=== PATIENT | male | born 1965 | race Caucasian/White ===

== ENCOUNTER 2019-07-01 05:24 | Emergency (ER) | payer OTHER ==
[~2019-07-01] VITALS: Ht 185.4 cm; Wt 95.3 kg
[2019-07-01] MEDS ORDERED: BACTRIM DS TAB1 EAC1 PO (05:45)
[2019-07-01] MEDS ORDERED: NORCO 5-325 TA1 EAC1 PO (05:45)
[2019-07-01 06:06] VITALS: BP 128/86
== END 2019-07-01 06:06 ==
LOC: M.ERS 05:24
DX: S91.311A Laceration without foreign body, right foot, initial encounter (principal); L03.115 Cellulitis of right lower limb; Z88.0 Allergy status to penicillin; X58.XXXA Exposure to other specified factors, initial encounter; Y93.89 Activity, other specified; Y92.89 Other specified places as the place of occurrence of the external cause; Y99.8 Other external cause status

== ENCOUNTER 2019-09-13 17:35 | Inpatient (IN) | payer OTHER ==
[~2019-09-13] VITALS: Ht 185.4 cm; Wt 111.0 kg
--- NOTE | ~2019-09-13 | CON ---
[address] [address] CONSULTATION Name: SHANNAN MEEKS Room: [address] IN .R.#: [id number] Admission: 09/13/19 Attend Phys: Khadar Ma MD Discharge: Date of : 67 Report #: [id number] THIS REPORT FOR: //name// CC: Khadar Ma [facility] physician/PCP DICTATED BY: Seema WILSON DATE OF SERVICE: 09/16/2019 PRIMARY CARE PHYSICIAN: The patient does not have a PCP. Please note, at the time of this dictation, the patient was seen and physically examined by myself. REASON FOR CONSULTATION: Abnormal CT pancreatic cysts noted. HISTORY OF PRESENT ILLNESS: This is a 54-year-old male, who presented to the Emergency Room with worsening of his shortness of breath over the past week. He states he was diagnosed with influenza 2 weeks prior and he is still having some flu-like symptoms with fever, in which he was complaining of some body aches and chills and dizzy with some head congestion and he has had a little bit of nausea and vomiting. At the time of this dictation when I saw the patient, symptoms of his upper respiratory tract have completely resolved along with his fever and he is feeling significantly better. In talking with the patient, he has never been informed that he was positive for hepatitis C. We will start a workup. In further talking to the patient, he did have some tattoos that were done by friends and not at a shop. He also admits to IV drug use in his teens. The patient denies any nausea, vomiting, any acid reflux, any abdominal pain or any changes in his bowel habits. He states his bowels move daily soft and formed on a regular basis with no evidence of any bright red blood or black tarry stools. He denies any issues with acid reflux either. ALLERGIES: PENICILLIN. MEDICATIONS FROM HOME: None. PAST MEDICAL HISTORY: Negative. PAST SURGICAL HISTORY: Negative. FAMILY HISTORY: Negative for any GI or female cancers. SOCIAL HISTORY: Past IV drug use. Denies any alcohol or tobacco use at this time along with [place] [address] CONSULTATION Name: SHANNAN MEEKS [place] Room: [address]#: [id number] Admission: 09/13/19 Attend Phys: Khadar Ma MD Discharge: Date of : 67 Report #: [id number] REVIEW OF SYSTEMS: Twelve-point review of systems is essentially negative except what is mentioned in the HPI. PHYSICAL EXAMINATION: VITAL SIGNS: Temperature 37.2, pulse 82, respirations 18, and blood pressure 116/54. HEART: Regular rate and rhythm. LUNGS: Diminished, but clear. ABDOMEN: Soft, positive bowel sounds in all 4 quadrants with no masses or tenderness noted. SKIN: Warm and dry with numerous tattoos on arms, abdomen, neck, and all over his body. LABORATORY DATA: White count on admission was 13.9, it is now normal. His white count yesterday was up to 19.1. Hemoglobin is 13.3, platelets is 185. PT 10.9, INR is 1.1, GFR is 70. LFTs are completely normal. His BNP was a little elevated at 1366. CT of the abdomen and pelvis showed nodular surface of the liver with mild hepatosplenomegaly, may representing cirrhosis with mild portal hypertension. Gallbladder was contracted. Mildly prominent lymph nodes around the head of the pancreas and in the retroperitoneum without any evidence of any pathological adenopathy that was noted. He has a small umbilical fat hernia, otherwise normal. He just returned from an ultrasound that was confirming a slightly nodular surface of his liver and that he was at the upper limits of normal. Gallbladder was completely normal. CPD was normal. Pancreas partially visualized. Portal vein flow was normal in this direction without any evidence of any stenosis and the spleen was not noted on ultrasound. IMPRESSION: 1. Pancreatic lymph nodes, more prominent noted. 2. Positive HCV with a history of IV drug use in his teens and numerous tattoos outside of a parlor. 3. Cirrhosis of the liver, likely related to #2. 4. Leukocytosis. 5. Shortness of air, resolved. 6. History of influenza 2 weeks ago. PLAN: 1. We will obtain an AFP and HCV PCR RNA. 2. Further recommendations to be made as an outpatient regarding treatment and followup regarding his cirrhosis as well as EGD and colon [place] [address] CONSULTATION Name: SHANNAN MEEKS Room: [address] IN [facility]#: [id number] Admission: 09/13/19 Attend Phys: Khadar Ma MD Discharge: Date of : 67 Report #: [id number] Thank you for allowing us to participate in this patient's care. Please do not hesitate to call with any questions in regard to this consult. By: [id number] [id number] Cassidy MD /chris
[~2019-09-13 17:35] MED LIST: BACTRIM DS TAB1 EAC1 PO; NORCO 5-325 TA1 EAC1 PO
[2019-09-13 17:52] VITALS: BP 126/81
[2019-09-13 18:22] LABS: INFLUENZA A ANTIGEN Negative (Negative); INFLUENZA B ANTIGEN Negative (Negative)
[2019-09-13 18:32] LABS: HEMATOCRIT 42.1 % (42.0-52.0); HEMOGLOBIN 14.7 gm/dL (14.0-18.0); MCH 30.3 pg (26.0-34.0); MCV 86.7 fL (80.0-100.0); MPV 8.6 fl. (7.2-11.1); NUCLEATED RBCS 0 /100WBC; PLATELET COUNT* 130 thou/uL (150-400); RBC 4.85 mil/uL (4.50-6.00); RDW-CV 13.8 % (10.5-14.5); WBC 13.9 thou/uL (4.0-11.0)
[2019-09-13 18:46] LABS: CALCIUM 7.9 mg/dL (8.5-10.1); CREATININE 1.9 mg/dL (0.6-1.3)
[2019-09-13 18:51] LABS: ALBUMIN 2.7 g/dL (3.4-5.0); TOTAL BILIRUBIN 1.4 mg/dL (<0.1-1.0); TOTAL PROTEIN 7.5 g/dL (6.4-8.2)
[2019-09-13 19:23] LABS: ABSOLUTE LYMPHOCYTES 1.3 thou/uL (0.8-5.3); ABSOLUTE MONOCYTES 1.1 thou/uL (0.0-1.2); ABSOLUTE NEUTROPHILS 11.5 thou/uL (1.6-8.1)
[2019-09-13 19:24] LABS: LARGE PLATELETS OCCASIONAL; PLATELET ESTIMATE ADEQUATE
[2019-09-13 21:02] VITALS: BP 86/53
[2019-09-13 22:00] VITALS: BP 106/64
[2019-09-14] VITALS (7 sets, daily range): BP systolic 109–140; BP diastolic 52–75
--- NOTE | 2019-09-14 04:44 | NUR ---
PATIENT PROGRESSING TOWARDS GOALS: PATIENT HAS REMAINED AFEBRILE SINCE ADMISSION. STATES HE "FEELS SO MUCH BETTER." IVF INFUSING PER ORDERS. INFORMED PATIENT THAT WE NEED A URINE SAMPLE AND PROVIDED A CLEAN URINAL. CALL LIGHT WITHIN REACH
--- NOTE | 2019-09-14 12:35 | NUR ---
CM COMPLETED INITIAL ASSESSMENT. PT ALERT AND CONVERSATIONAL. WOJCIECH AT BESIDE. PT IS INDEPENDENT AND ACTIVE AND EMPLOYEED. REPORTS HX W/SNF OR HH. NO NEEDS IDENTIFIED AT THIS TIME. CM TO CONT TO FOLLOW.
--- NOTE | 2019-09-14 14:33 | EKG ---
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
[2019-09-14 14:34] LABS: CALCIUM 8.3 mg/dL (8.5-10.1); CREATININE 1.4 mg/dL (0.6-1.3)
[2019-09-14 14:38] LABS: POTASSIUM 2.9 mmol/L (3.5-5.1)
--- NOTE | 2019-09-14 16:00 | 2DMMODE ---
[place] [address] 2 D/M-MODE ECHOCARDIOGRAM Name: SHANNAN MEEKS Room: [address] IN [facility]#: [id number] Admission: 09/13/19 Attend Phys: Khadar Ma, Discharge: Date of : 67 Date of Service: 09/14/19 1559 Report #: [id number] THIS REPORT FOR: //name// APPROVED REPORT Study performed: 09/14/2019 14:54:54 EXAM: Comprehensive 2D, Doppler, and color-flow Echocardiogram Patient Location: In-Patient Room #: 230 Status: routine BSA: 2.26 HR: 97 bpm BP: 124/68 mmHg Rhythm: NSR Other Information Study Quality: Good Indications Dyspnea 2D Dimensions IVSd: 7.74 (7-11mm) LVOT Diam: 23.46 (18-24mm) LVDd: 49.29 mm PWd: 10.12 (7-11mm) Ascending Ao: 33.73 (22-36mm) LVDs: 26.53 (25-40mm) Aortic Root: 33.74 mm Volumes Left Atrial Volume (Systole) LA ESV Index: 27.50 mL/m2 Aortic Valve AoV Peak Caesar.: 1.86 m/s AO Peak Gr.: 13.90 mmHg LVOT Max P.84 mmHg AO Mean Gr.: 8.24 mmHg LVOT Mean P.23 mmHg LVOT Max V: 1.31 m/s AO V2 VTI: 34.44 cm LVOT Mean V: 0.82 m/s KELSEY (VTI): 2.98 cm2 LVOT V1 VTI: 23.72 cm Mitral Valve E/A Ratio: 1.14 MV Decel. Time: 184.40 ms MV E Max Caesar.: 0.93 m/[place] [address] 2 D/M-MODE ECHOCARDIOGRAM Name: SHANNAN MEEKS Room: [address] IN ..#: [id number] Admission: 09/13/19 Attend Phys: Khadar Ma, Discharge: Date of : 67 Date of Service: 09/14/19 1559 Report #: [id number] PHT: 53.48 ms MVA (PHT): 4.11 cm2 TDI E/Lateral E': 6.20 E/Medial E': 5.47 Medial E' Caesar.: 0.17 m/s Lateral E' Caesar.: 0.15 m/s Pulmonary Valve PV Peak Caesar.: 1.37 m/s PV Peak Gr.: 7.50 mmHg Left Ventricle The left ventricle is normal size. There is normal LV segmental wall motion. There is normal left ventricular wall thickness. Left ventricular systolic function is normal. LVEF is 65-70%. The left ventricular diastolic function is normal. Right Ventricle The right ventricle is normal size. The right ventricular systolic function is normal. Atria The left atrium size is normal. The right atrium size is normal. Aortic Valve The aortic valve is normal in structure. No aortic regurgitation is present. There is no aortic valvular stenosis. Mitral Valve The mitral valve is normal in structure. There is no mitral valve regurgitation noted. No evidence of mitral valve stenosis. Tricuspid Valve The tricuspid valve is normal in structure. Trace tricuspid regurgitation. No pulmonary hypertension. Pulmonic Valve The pulmonary valve is normal in structure. There is no pulmonic valvular regurgitation. Great Vessels The aortic root is normal in size. IVC is normal in size and collapses >50% with [place] [address] 2 D/M-MODE ECHOCARDIOGRAM Name: SHANNAN MEEKS Room: [address] IN [facility]#: [id number] Admission: 09/13/19 Attend Phys: Khadar Ma, Discharge: Date of : 67 Date of Service: 09/14/19 1559 Report #: [id number] There is no pericardial effusion. <Conclusion> The left ventricle is normal size. There is normal left ventricular wall thickness. Left ventricular systolic function is normal. LVEF is 65-70%. The left ventricular diastolic function is normal. Trace tricuspid regurgitation. No pulmonary hypertension. IVC is normal in size and collapses >50% with inspiration. <ELECTRONICALLY SIGNED> By: Jono Dimas MD, FACC 09/14/19 1559 1559 1559 Jono Dimas MD, FACC /INF
[2019-09-15 00:33] VITALS: BP 132/70
[2019-09-15 04:00] VITALS: BP 100/55
--- NOTE | 2019-09-15 04:55 | NUR ---
ASSUMED PT CARE AT APPROX 1930. PT IS AWAKE AND ORIENTED X4. AT APPROX 2146 PT HAD AN APPROX 2MIN RUN OF WHAT LOOKED TO BE AN SVT-AT 180's. BP AND OTHER VITALS ARE STABLE OTHERWISE-PLS SEE CHARTING, PT DENIES CHEST PAIN. 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 DR MARTIN MADE AWARE, NO NEW ORDERS RECEIVED. WILL CONTINUE CLOSE MONITORING.
[2019-09-15 05:28] LABS: ABSOLUTE BASOPHILS 0.1 thou/uL (0.0-0.2); ABSOLUTE LYMPHOCYTES 1.4 thou/uL (0.8-5.3); ABSOLUTE MONOCYTES 1.5 thou/uL (0.0-1.2); ABSOLUTE NEUTROPHILS 16.2 thou/uL (1.6-8.1); BASOPHILS 0.3 %; HEMOGLOBIN 13.3 gm/dL (14.0-18.0); LYMPHOCYTES 7.3 %; MCH 29.6 pg (26.0-34.0); MCHC 34.1 g/dL (28.0-37.0); MCV 86.7 fL (80.0-100.0); MONOCYTES 7.6 %; MPV 8.7 fl. (7.2-11.1); NUCLEATED RBCS 0 /100WBC; PLATELET COUNT* 185 thou/uL (150-400); POLYS 84.8 %; RBC 4.49 mil/uL (4.50-6.00); RDW-CV 13.9 % (10.5-14.5); WBC 19.1 thou/uL (4.0-11.0)
[2019-09-15 07:30] VITALS: BP 126/62
[2019-09-15 08:03] LABS: POTASSIUM 4.1 mmol/L (3.5-5.1)
[2019-09-15 12:13] LABS: URINE BILIRUBIN NEGATIVE (Negative); URINE BLOOD NEGATIVE (Negative); URINE CLARITY CLEAR; URINE COLOR YELLOW; URINE GLUCOSE-RANDOM NEGATIVE (Negative); URINE KETONES NEGATIVE (Negative); URINE LEUKOCYTES-REFLEX NEGATIVE (Negative); URINE NITRITE-REFLEX NEGATIVE (Negative); URINE PROTEIN NEGATIVE (Negative)
[2019-09-15 12:24] LABS: AMP/METHAMP POSITIVE (Negative); BARBITURATES Negative (Negative); BENZODIAZEPINES Negative (Negative); COCAINE Negative (Negative); METHADONE Negative (Negative); OPIATES Negative (Negative); PCP Negative (Negative); THC Negative (Negative)
[2019-09-15 12:28] VITALS: BP 147/60
[2019-09-15 14:00] LABS: ALBUMIN 2.3 g/dL (3.4-5.0); CREATININE 1.1 mg/dL (0.6-1.3); MAGNESIUM 1.8 mg/dL (1.8-2.4); TOTAL BILIRUBIN 0.3 mg/dL (<0.1-1.0); TOTAL PROTEIN 6.1 g/dL (6.4-8.2)
[2019-09-15 16:32] LABS: APTT 27.6 Seconds (25.0-31.3); INR 1.1; PROTIME 10.9 Seconds (9.20-11.50)
[2019-09-15 20:00] VITALS: BP 115/65
[2019-09-16 00:25] VITALS: BP 130/65
[2019-09-16 04:00] VITALS: BP 116/54
--- NOTE | 2019-09-16 08:18 | NUR ---
ASSUMED PATIENT CARE AT 1900. ASSESSMENT COMPLETED CHARTED. PATIENT IS NSR ON THE MONITOR. HOURLY ROUNDING IN PLACE FOR PATIENT SAFETY. CLWR.
[2019-09-16 08:55] VITALS: BP 135/78
[2019-09-16 09:09] LABS: HEPATITIS B SURFACE AG Negative (Negative)
[2019-09-16 12:27] VITALS: BP 146/94
[2019-09-16] MEDS ORDERED: LEVAQUIN 500 M500 M3 PO (15:06)
[2019-09-16 16:21] VITALS: BP 146/94
--- NOTE | 2019-09-17 07:45 | CON ---
[address] [address] CONSULTATION Name: SHANNAN MEEKS Room: [address] IN M.R.#: [id number] Admission: 09/13/19 Attend Phys: Khadar Ma MD Discharge: 09/16/19 Date of : 67 Report #: [id number] THIS REPORT FOR: //name// CC: Khadar Ma FAM physician/PCP DATE OF SERVICE: 09/16/2019 INFECTIOUS DISEASE CONSULTATION ATTENDING PHYSICIAN: Dr. Cárdenas. REASON FOR EVALUATION: Chronic hepatitis C. HISTORY OF PRESENT ILLNESS: Chart reviewed, patient examined. This is a 54-year-old gentleman who was admitted through the Emergency Room on 09/13/2019 with complaints of progressive dyspnea with course of the week prior, cough, sore throat, fever or chills, myalgias. Had been previously diagnosed with influenza. Two weeks prior evaluation, chest x-ray suggested possible pneumonitis, although CT failed to show it. He tentatively was diagnosed with lower respiratory tract infection. As part of the workup, did undergo CT of the abdomen and pelvis, which showed nodular liver consistent with cirrhosis. Followup acute hepatitis panel confirmed hepatitis C antibody positivity. He does have risk factors including extensive tattoos, he is dated back up to 35 years ago, most recently up to a year ago. He has a persistent cough, although he is lucid. Denies significant abdominal-related complaints. ALLERGIES: PENICILLIN, WHICH CAUSES URTICARIA. CURRENT MEDICATIONS: Include Levaquin, ipratropium and albuterol inhaler, acetaminophen. PAST MEDICAL HISTORY: Denies. SOCIAL HISTORY: Denies tobacco use or ethanol use. Does have a positive screen for methamphetamine. FAMILY HISTORY: Noncontributory. REVIEW OF SYSTEMS: As above. PHYSICAL EXAMINATION: GENERAL: Appears somewhat chronically ill, undernourished, dmsw-lf-idtuectr distress. VITAL SIGNS: Temperature 98.1, pulse 79, respirations 19, blood pressure 146/94[place] [address] CONSULTATION Name: GREGORIALYDIASHANNAN Room: [address]#: [id number] Admission: 09/13/19 Attend Phys: Khadar Ma MD Discharge: 09/16/19 Date of : 67 Report #: [id number] SKIN: Warm, dry, no rashes. HEENT: Neck is supple. Extraocular muscles intact. Normocephalic. SKIN: Has extensive tattooing. LUNGS: Scattered coarse breath sounds, some wheezes. HEART: Regular, distant. I do not appreciate a murmur. ABDOMEN: Soft, nontender, nondistended. I do not appreciate any organomegaly. GENITOURINARY AND RECTAL: Deferred. LABORATORY DATA: Influenza antigen was negative on admission. Electrolytes: Sodium 131, potassium 4.0, chloride 94, bicarbonate is 28, anion gap of 9, BUN and creatinine 22 and 1.9, glucose of 186. Total bilirubin 1.4. Albumin of 2.7, total protein 7.5. AST of 78, ALT of 34. Estimated GFR of 37. Chest x-ray described above, patchy medial left basilar atelectasis, pneumonitis. CBC: White count of 13.9, H and H 14.7 and 42.1, platelets of 130. Lactic acid initially 3.3. Sed rate of 64. CT of abdomen and pelvis showed nodular surface of the liver, mild hepatosplenomegaly, raised question of cirrhosis with mild portal hypertension, contracted gallbladder. Echo, EF of 65-70%, normal left ventricular size and thickness. No pulmonary hypertension. Blood cultures are sterile thus far. Urinalysis unremarkable. Urine drug screen positive for amphetamine and methamphetamine. ASSESSMENT: Hepatitis-C, suspect chronic. Will need evaluation including a viral load, genotype, also FibroSure to further stage and grade. He is likely fairly advanced at this point. When he is clear of his current respiratory tract infection, I think he would be a candidate for treatment. I did discuss with the patient and his significant other. I did encourage the partner to get tested. We will see him if he decides to follow up. <ELECTRONICALLY SIGNED> By: Jay Munoz MD 09/17/19 0745 1439 [id number] Munoz MD /nt
== END 2019-09-16 16:45 | disposition home or self-care (01) | DRG 871 ==
LOC: M.ERS 17:35 → M.2W 19:47 → M.TBA-ER 19:47 → M.2W 21:17
PROVIDERS: Internal Medicine; Personal Emergency Response Attendant; Physician Assistant; ADMIT Internal Medicine
DX: A41.9 Sepsis, unspecified organism (principal); J15.9 Unspecified bacterial pneumonia; N17.9 Acute kidney failure, unspecified; K74.60 Unspecified cirrhosis of liver; B19.20 Unspecified viral hepatitis C without hepatic coma; R59.1 Generalized enlarged lymph nodes; Z88.0 Allergy status to penicillin; Z79.899 Other long term (current) drug therapy

== ENCOUNTER 2019-09-24 22:14 | Inpatient (IN) | payer OTHER ==
[~2019-09-24] VITALS: Ht 185.4 cm; Wt 102.1 kg
[~2019-09-24 22:14] MED LIST changes: +LEVAQUIN 500 M500 M3 PO
[2019-09-24 22:28] VITALS: BP 128/73
[2019-09-25 00:22] LABS: ABSOLUTE BASOPHILS 0.1 thou/uL (0.0-0.2); ABSOLUTE EOSINOPHILS 0.1 thou/uL (0.0-0.7); ABSOLUTE LYMPHOCYTES 2.1 thou/uL (0.8-5.3); ABSOLUTE MONOCYTES 1.5 thou/uL (0.0-1.2); ABSOLUTE NEUTROPHILS 12.3 thou/uL (1.6-8.1); BASOPHILS 0.8 %; EOSINOPHILS 0.4 %; HEMATOCRIT 39.5 % (42.0-52.0); HEMOGLOBIN 13.2 gm/dL (14.0-18.0); LYMPHOCYTES 12.8 %; MCH 29.3 pg (26.0-34.0); MCHC 33.5 g/dL (28.0-37.0); MCV 87.3 fL (80.0-100.0); MONOCYTES 9.6 %; NUCLEATED RBCS 0 /100WBC; PLATELET COUNT* 296 thou/uL (150-400); POLYS 76.4 %; RBC 4.52 mil/uL (4.50-6.00); RDW-CV 14.3 % (10.5-14.5)
[2019-09-25 00:30] LABS: CALCIUM 8.1 mg/dL (8.5-10.1); CREATININE 1.2 mg/dL (0.6-1.3); POTASSIUM 4.2 mmol/L (3.5-5.1)
[2019-09-25 02:09] VITALS: BP 145/74
[2019-09-25 02:35] VITALS: BP 88/58
[2019-09-25 02:49] VITALS: BP 113/56
[2019-09-25 08:00] VITALS: BP 108/54
[2019-09-25 15:26] VITALS: BP 114/63
[2019-09-25 20:00] VITALS: BP 125/70
[2019-09-26 08:00] VITALS: BP 100/61
[2019-09-26 08:34] LABS: ABSOLUTE BASOPHILS 0.1 thou/uL (0.0-0.2); ABSOLUTE EOSINOPHILS 0.1 thou/uL (0.0-0.7); ABSOLUTE LYMPHOCYTES 1.2 thou/uL (0.8-5.3); ABSOLUTE MONOCYTES 1.2 thou/uL (0.0-1.2); ABSOLUTE NEUTROPHILS 6.3 thou/uL (1.6-8.1); BASOPHILS 1.1 %; EOSINOPHILS 1.4 %; HEMATOCRIT 38.7 % (42.0-52.0); HEMOGLOBIN 13.2 gm/dL (14.0-18.0); LYMPHOCYTES 13.2 %; MCH 29.8 pg (26.0-34.0); MCHC 34.2 g/dL (28.0-37.0); MCV 87.2 fL (80.0-100.0); MONOCYTES 13.1 %; MPV 7.8 fl. (7.2-11.1); NUCLEATED RBCS 0 /100WBC; PLATELET COUNT* 249 thou/uL (150-400); POLYS 71.2 %; RBC 4.44 mil/uL (4.50-6.00); RDW-CV 14.1 % (10.5-14.5); WBC 8.8 thou/uL (4.0-11.0)
[2019-09-26 08:38] LABS: CALCIUM 7.9 mg/dL (8.5-10.1); CREATININE 1.2 mg/dL (0.6-1.3); POTASSIUM 3.9 mmol/L (3.5-5.1)
[2019-09-26 15:47] VITALS: BP 110/56
[2019-09-26 20:00] VITALS: BP 120/61
[2019-09-27 09:40] VITALS: BP 110/62
[2019-09-27 20:00] VITALS: BP 128/82
[2019-09-28 03:49] LABS: HEMATOCRIT 42.5 % (42.0-52.0); HEMOGLOBIN 14.4 gm/dL (14.0-18.0); MCH 29.7 pg (26.0-34.0); MCHC 33.9 g/dL (28.0-37.0); MCV 87.7 fL (80.0-100.0); MPV 8.3 fl. (7.2-11.1); RBC 4.84 mil/uL (4.50-6.00); RDW-CV 13.8 % (10.5-14.5); WBC 6.5 thou/uL (4.0-11.0)
[2019-09-28 03:59] LABS: ALBUMIN 2.4 g/dL (3.4-5.0); CALCIUM 8.3 mg/dL (8.5-10.1); CREATININE 1.4 mg/dL (0.6-1.3); MAGNESIUM 1.9 mg/dL (1.8-2.4); POTASSIUM 4.1 mmol/L (3.5-5.1); TOTAL BILIRUBIN 0.3 mg/dL (<0.1-1.0); TOTAL PROTEIN 7.6 g/dL (6.4-8.2)
[2019-09-28] MEDS ORDERED: BACTRIM DS TAB1 EAC1 PO (14:49)
[2019-09-28] MEDS ORDERED: DOXYCYCLINE 10100 M2 PO (14:50)
[2019-09-28 14:51] VITALS: BP 128/82
== END 2019-09-28 16:53 | disposition home or self-care (01) | DRG 507 ==
LOC: M.ERS 22:14 → M.TBA-ER 09-25 01:23 → M.ORTHSURG 09-25 01:23
PROVIDERS: Emergency Medicine; Family Medicine; ADMIT Internal Medicine
PROC: 0R9M0ZZ Drainage of Left Elbow Joint, Open Approach (ICD-10-PCS; principal; 2019-09-25)
DX: M00.822 Arthritis due to other bacteria, left elbow (principal); L03.114 Cellulitis of left upper limb; B96.89 Other specified bacterial agents as the cause of diseases classified elsewhere; Z88.0 Allergy status to penicillin; Z28.21 Immunization not carried out because of patient refusal

== ENCOUNTER 2019-11-04 21:30 | Inpatient (IN) | payer OTHER ==
[~2019-11-04] VITALS: Ht 185.4 cm; Wt 106.6 kg
[~2019-11-04 21:30] MED LIST changes: +DOXYCYCLINE 10100 M2 PO
[2019-11-04 21:45] VITALS: BP 150/67
[2019-11-04 22:19] LABS: ABSOLUTE BASOPHILS 0.1 thou/uL (0.0-0.2); ABSOLUTE EOSINOPHILS 0.1 thou/uL (0.0-0.7); ABSOLUTE LYMPHOCYTES 1.6 thou/uL (0.8-5.3); ABSOLUTE MONOCYTES 0.8 thou/uL (0.0-1.2); BASOPHILS 0.5 %; EOSINOPHILS 0.6 %; HEMATOCRIT 39.3 % (42.0-52.0); HEMOGLOBIN 13.3 gm/dL (14.0-18.0); LYMPHOCYTES 15.6 %; MCH 29.7 pg (26.0-34.0); MCHC 33.8 g/dL (28.0-37.0); MONOCYTES 7.3 %; MPV 8.8 fl. (7.2-11.1); NUCLEATED RBCS 0 /100WBC; PLATELET COUNT* 197 thou/uL (150-400); RBC 4.47 mil/uL (4.50-6.00); RDW-CV 14.4 % (10.5-14.5); WBC 10.5 thou/uL (4.0-11.0)
[2019-11-04 22:27] LABS: CALCIUM 8.6 mg/dL (8.5-10.1); CREATININE 0.9 mg/dL (0.6-1.3)
[2019-11-04 22:31] LABS: ALBUMIN 3.3 g/dL (3.4-5.0); TOTAL BILIRUBIN 1.7 mg/dL (<0.1-1.0); TOTAL PROTEIN 7.9 g/dL (6.4-8.2)
[2019-11-05 04:23] LABS: URINE BILIRUBIN NEGATIVE (Negative); URINE BLOOD NEGATIVE (Negative); URINE CLARITY CLEAR; URINE COLOR DARK YELLOW; URINE GLUCOSE-RANDOM NEGATIVE (Negative); URINE KETONES NEGATIVE (Negative); URINE LEUKOCYTES-REFLEX NEGATIVE (Negative); URINE NITRITE-REFLEX NEGATIVE (Negative); URINE PROTEIN NEGATIVE (Negative); URINE UROBILINOGEN >= 8.0 E.U./dl (0.2-1.0)
[2019-11-05 06:00] VITALS: BP 129/64
--- NOTE | 2019-11-05 06:52 | NUR ---
REPORT RECEIVED FROM PENNY KRISHNAMURTHY. THIS NURSE TO ASSUME PT CARE AT THIS TIME.
--- NOTE | 2019-11-05 08:53 | NUR ---
REPORT GIVEN TO PENNY LION WHO IS TO ASSUME PT CARE INPATIENT NURSE.
[2019-11-05 08:54] VITALS: BP 140/76
[2019-11-05 09:30] VITALS: BP 122/67
--- NOTE | 2019-11-05 10:12 | EKG ---
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
--- NOTE | 2019-11-05 12:38 | NUR ---
Patient stated "what do I need to do if I want to go home?". Told patient that he is on IV Antibiotics that are very strong and that he was having pain issues. He stated "I haven't decided what I want to do yet but the doctor said I could go home on antibiotic pills." Instructed patient to call and let RN know when he has made a decision.
--- NOTE | 2019-11-05 15:39 | NUR ---
REPORT CALLED TO LILIA FRANCIS. TRANSFERRED TO ROOM 314 VIA BED WITH ALL BELONGINGS. FAMILY AT BEDSIDE.
--- NOTE | 2019-11-05 19:02 | NUR ---
PATIENT ARRIVED TO FLOOR AT 1530 VIA BED FROM PACU WHERE HE WAS BEING BOARDED UNTIL A ROOM WAS AVAILABLE. REC'D HYDROCODONE PRIOR TO COMING TO FLOOR AND IS RESTING WITH EYES CLOSED. WHEN RIGHT ARM IS MOVED PATIENT YELLS OUT WIHT PAIN...COLD PACK GIVEN AND PATIENT STATED IT FELT MUCH BETTER. FAMILY AT BEDSIDE. VSS...125/69 98.7-86-16-96%. MULTIPLE AREAS OF SUPERFICIAL SKIN TRAUMA NOTED ON ARMS, FACE, AND HANDS, DRY AND SHARRON.
[2019-11-05 21:47] VITALS: BP 119/74
[2019-11-06 03:56] LABS: ABSOLUTE EOSINOPHILS 0.1 thou/uL (0.0-0.7); ABSOLUTE LYMPHOCYTES 1.6 thou/uL (0.8-5.3); ABSOLUTE NEUTROPHILS 5.4 thou/uL (1.6-8.1); BASOPHILS 0.5 %; EOSINOPHILS 1.7 %; HEMATOCRIT 35.5 % (42.0-52.0); LYMPHOCYTES 19.3 %; MCH 29.7 pg (26.0-34.0); MCV 87.5 fL (80.0-100.0); MONOCYTES 11.9 %; MPV 8.4 fl. (7.2-11.1); NUCLEATED RBCS 0 /100WBC; PLATELET COUNT* 193 thou/uL (150-400); POLYS 66.6 %; RBC 4.05 mil/uL (4.50-6.00); WBC 8.1 thou/uL (4.0-11.0)
[2019-11-06 04:28] LABS: ALBUMIN 2.5 g/dL (3.4-5.0); CALCIUM 8.2 mg/dL (8.5-10.1); CREATININE 0.8 mg/dL (0.6-1.3); POTASSIUM 3.3 mmol/L (3.5-5.1); TOTAL BILIRUBIN 1.2 mg/dL (<0.1-1.0); TOTAL PROTEIN 6.6 g/dL (6.4-8.2)
--- NOTE | 2019-11-06 06:32 | NUR ---
PATIENT SLEPT MOST OF THE NIGHT. IV FLUIDS AND ANTIBIOTICS WERE GIVEN ORDERED. PATIENT WAS GIVEN PAIN MEDICINE ONCE. WILL CONTINUE TO MONITOR.
[2019-11-06 08:00] VITALS: BP 163/87
[2019-11-06 14:08] VITALS: BP 163/87
--- NOTE | 2019-11-06 16:56 | NUR ---
ASSUMMED CARE OF PT AT 0730, PT ALERT AND ORIENTED, PT HAS ROAD RASH ON BILATERAL ARMS AND FACE, RIGHT ARM WORSE THAN LEFT, C/O PAIN IN RIGHT ELBOW, MEDICATED PER ORDER, STATES PAIN IS ALWAYS A 8, WHETHER HE HAS MEDS OR NOT, COLD PACKS GIVEN TO PT, MRSA SWAB SENT, SALINE LOCK PATENT IN LEFT FA, K+ LOW, PHYSICIAN INFORMED AND ORDERS OBTAINED FOR ELECTROLYTE PROTOCAL, SLEPT ENTIRE SHIFT EXCEPT WHEN AWAKENED FOR MEDS OR MEALS, ASSESSMENT COMPLETE, HOURLY ROUNDING COMPLETE, WILL CONTINUE TO MONITOR.
[2019-11-06 20:30] VITALS: BP 148/94
[2019-11-07 05:02] LABS: MAGNESIUM 1.7 mg/dL (1.8-2.4); POTASSIUM 3.2 mmol/L (3.5-5.1)
--- NOTE | 2019-11-07 05:47 | NUR ---
PATIENT SLEPT PART OF THE NIGHT. IV FLUIDS AND ANTIBIOTICS WERE GIVEN ORDERED. PATIENT WAS GIVEN PAIN PILL TWICE IN ADDITION TO SCHEDULED TORADOL FOR PAIN. WILL CONTINUE TO MONITOR.
[2019-11-07 08:00] VITALS: BP 136/80
[2019-11-07 16:00] VITALS: BP 137/76
--- NOTE | 2019-11-07 18:24 | NUR ---
AM ASSESSMENT AND VITAL SIGNS COMPLETED DOCUMENTED. PT HAS RESTED IN BED THROUGHOUT THIS SHIFT AND WAS SLEEPING MOST OF THE TIME. IVF AND IV ABX CONTINUES. PT ENCOURAGED TO KEEP HIS ARMS ELEVATED ON PILLOWS. PT EATS A LOT OF CHIPS AND CANDY, EDUCATED ON THE IMPORTANCE OF PROTEIN FOR WOUND HEALING. HOURLY ROUNDING AND FALL PRECAUTIONS CONTINUE.
[2019-11-07 20:30] VITALS: BP 139/77
--- NOTE | 2019-11-08 05:28 | NUR ---
PATIENT SLEPT MOST OF THE NIGHT. IV ANTIBIOTICS WERE GIVEN ORDERED. PATIENT WAS GIVEN PAIN MEDICINE NEEDED. WILL CONTINUE TO MONITOR.
[2019-11-08 09:03] LABS: ABSOLUTE BASOPHILS 0.1 thou/uL (0.0-0.2); ABSOLUTE EOSINOPHILS 0.2 thou/uL (0.0-0.7); ABSOLUTE LYMPHOCYTES 1.8 thou/uL (0.8-5.3); ABSOLUTE MONOCYTES 0.7 thou/uL (0.0-1.2); ABSOLUTE NEUTROPHILS 5.3 thou/uL (1.6-8.1); BASOPHILS 0.8 %; HEMATOCRIT 37.5 % (42.0-52.0); HEMOGLOBIN 12.9 gm/dL (14.0-18.0); LYMPHOCYTES 21.9 %; MCH 29.6 pg (26.0-34.0); MCHC 34.3 g/dL (28.0-37.0); MCV 86.2 fL (80.0-100.0); MONOCYTES 8.9 %; MPV 7.1 fl. (7.2-11.1); NUCLEATED RBCS 0 /100WBC; PLATELET COUNT* 257 thou/uL (150-400); POLYS 65.4 %; RBC 4.35 mil/uL (4.50-6.00); WBC 8.1 thou/uL (4.0-11.0)
[2019-11-08 09:12] VITALS: BP 128/82
[2019-11-08] MEDS ORDERED: clindamycin PO (10:27)
[2019-11-08 10:29] LABS: ALBUMIN 2.5 g/dL (3.4-5.0); CALCIUM 8.3 mg/dL (8.5-10.1); CREATININE 0.8 mg/dL (0.6-1.3); POTASSIUM 3.7 mmol/L (3.5-5.1); TOTAL BILIRUBIN 0.8 mg/dL (<0.1-1.0)
[2019-11-08] MEDS ORDERED: NORCO 5-325 TA1 EAC1 PO (10:29)
[2019-11-08 10:38] VITALS: BP 128/82
--- NOTE | 2019-11-08 11:19 | NUR ---
ASSESSMENT COMPLETED DOCUMENTED THIS MORNING. DR. GARCIA IN AND WROTE DC ORDERS, PATIENT ANXIOUS TO GO HOME. S.O. AT BEDSIDE. PATIENT DENIES ANY PAIN, APPETITE IS GOOD, AND BOWELS ARE MOVING. 1015 IV DCD FROM LEFT F/A WITHOUT S/S OF INFECTION. 1050 PATIENT DCD VIA W/C BY NURSING STAFF DC INSTRUCTIONS AND PRESCRIPTIONS GIVEN WITH UNDERSTANDING VERBALIZED.
[2019-11-08 11:24] VITALS: BP 128/82
== END 2019-11-08 10:50 | disposition home or self-care (01) | DRG 871 ==
LOC: M.ERS 21:30 → M.TBA-ER 11-05 01:26 → M.3W 11-05 01:26
PROVIDERS: Emergency Medicine Emergency Medical Services; ADMIT Internal Medicine
DX: A41.9 Sepsis, unspecified organism (principal); E43 Unspecified severe protein-calorie malnutrition; L03.113 Cellulitis of right upper limb; J98.11 Atelectasis; L03.211 Cellulitis of face; L03.114 Cellulitis of left upper limb; B19.20 Unspecified viral hepatitis C without hepatic coma; Z88.0 Allergy status to penicillin; Z82.49 Family history of ischemic heart disease and other diseases of the circulatory system; Z83.3 Family history of diabetes mellitus; Z68.31 Body mass index [BMI] 31.0-31.9, adult; Z23 Encounter for immunization